=== PATIENT | male | born 1995 | race Two or more races ===

== ENCOUNTER 2019-05-06 17:32 | Emergency (ER) | payer SELFPAY ==
[~2019-05-06] VITALS: Ht 172.7 cm; Wt 72.6 kg
[2019-05-06 17:38] VITALS: BP 136/71
[2019-05-06] MEDS ORDERED: DexAMETHasone SOD PHOS 10MG/1ML VIAL INJ IM ONE (21:30)
== END 2019-05-06 23:07 | disposition home or self-care (01) ==
LOC: ER 17:32
DX: M22.3X2 Other derangements of patella, left knee (principal)
CPT/HCPCS: 29505; 73562; 96372; 99283; J1100

== ENCOUNTER 2020-11-18 07:18 | Emergency (ER) | payer SELFPAY ==
[~2020-11-18] VITALS: Ht 172.7 cm; Wt 77.1 kg
[2020-11-18 07:27] VITALS: BP 124/79
[2020-11-18 08:09] LABS: Urine Bacteria NONE SEEN /hpf (None Seen); Urine Blood TRACE /uL (Negative); Urine Specific Gravity 1.014 (1.001-1.035); Urine WBC 259 /hpf (0 - 3); Urine WBC Clumps PRESENT /hpf (None Seen)
[2020-11-18] MEDS ORDERED: AZITHROMYCIN 250 MG TAB PO ONE (08:45)
[2020-11-18] MEDS ORDERED: cefTRIAXone SODIUM 250 MG VL IM ONE (08:45)
[2020-11-18] MEDS ORDERED: LIDOCAINE 1% HCL (LOCAL ANESTH.) INJ 20ML MDV IJ ONE (08:45)
== END 2020-11-18 09:40 | disposition home or self-care (01) ==
LOC: ER 07:18
DX: N39.0 Urinary tract infection, site not specified (principal); Z20.2 Contact with and (suspected) exposure to infections with a predominantly sexual mode of transmission
CPT/HCPCS: 81001; 96372; 99283; J0696; J2001